=== PATIENT | male | born 1955 | race Caucasian/White ===

== ENCOUNTER 2017-11-17 15:42 | Emergency (ER) | payer SELFPAY ==
[~2017-11-17] VITALS: Ht 175.3 cm; Wt 72.6 kg
[2017-11-17 15:42] VITALS: BP_SYST 107
[2017-11-17 18:40] VITALS: BP_SYST 118
== END 2017-11-17 18:36 | disposition home or self-care (01) ==
LOC: SED 15:42
DX: L03.116 Cellulitis of left lower limb (principal); L03.115 Cellulitis of right lower limb
CPT/HCPCS: 99283